=== PATIENT | male | born 1960 | race Caucasian/White ===

== ENCOUNTER → 2018-09-01 | Day surgery (SDC) | payer BC ==
[~2018-09-01] MED LIST: Lactated Ringers 1,000 ML IV SCH; Propofol 200 MG/20 ML SDV IV ONE
--- NOTE | 2018-09-01 12:39 | OR ---
DATE OF OPERATION: 09/01/2018 PREOPERATIVE DIAGNOSIS: 1. POSTPRANDIAL ABDOMINAL PAIN. 2. CHRONIC ALTERED BOWEL HABITS. POSTOPERATIVE DIAGNOSIS: 1. DUODENITIS WITH ULCERATION. 2. SIGMOID DIVERTICULOSIS. SURGEON: Mike Tse MD PROCEDURE: 1. EGD WITH BIOPSIES X2, RACHEL. 2. FULL-LENGTH COLONOSCOPY WITH RANDOM BIOPSIES X5. ANESTHESIA: MAC via GLOVE EXAMINER. COMPLICATIONS: None. SPECIMEN: 1. Duodenal biopsy x2. 2. RACHEL. 3. Random colon biopsies x5. FINDINGS: 1. Full-length EGD. 2. Duodenitis in duodenal bulb with focal ulceration. 3. Full-length colonoscopy. 4. Minimal sigmoid diverticulosis. 5. No colon pathology, polyps, or explanation for patient's altered bowel habits. RECOMMENDATIONS: We will treat patient with proton pump therapy for his duodenitis and await pathology reports for further options. INDICATIONS: The patient was in for a routine physical. Admits to some postprandial abdominal fullness and bloating. Gallbladder ultrasound was negative. We elected to proceed with EGD in that regard. It has been 10 years since his last colonoscopy and he does have a history of persistent diarrhea. We elected to have diagnostic colonoscopy as well. DESCRIPTION OF PROCEDURE: The patient was prepped and draped, placed in left lateral decubitus position. A lubricated Olympus gastroscope was inserted over a bit, advanced to the cricopharyngeus area, and easily intubated into the esophagus. The esophageal lining was benign in its entire course. The Z-line was crisp around 40 cm. There may be a very small hiatal hernia present, but no spontaneous reflux. No distal esophagitis, stricturing, ulceration, or Mckenzie's changes. The scope was advanced into the stomach through the pylorus and into the second portion of duodenum. The second portion of the duodenum was unremarkable. The patient did have fairly obvious duodenitis of the duodenal bulb with a couple of small focal erosions, no ruchi ulcerations. Two biopsies were taken. The scope was brought back into the stomach and retroflexed. The upper fundus and cardia were unremarkable. Upon straightening, the rest of the fundus and antrum showed no signs of gastritis. There were no polyps, masses, or other worrisome lesions. A CLOtest was obtained, air was suctioned from the stomach, and the scope removed without complication. A lubricated Olympus colonoscope was then inserted and easily advanced to the cecum. I was able to directly visualize the ileocecal valve and appendiceal orifice. The bowel prep was excellent. Throughout the length of the colon, I could find no signs of any polyps, mass, ulceration, or bleeding sites. No vascular abnormalities or signs of colitis. No significant inflammatory changes. The patient does have a few scattered diverticula in the sigmoid area, minimal in severity. I did do random biopsies x5 throughout the colon given patient's persistent altered bowel habits. The rectal vault was unremarkable. Retroflexion of the scope in the rectum showed no anal lesions. Air was suctioned, scope removed without complication. MAG/ZOFIA /[id number]
== END ==
LOC: CC.SDS 08:43
PROVIDERS: ATTEND Family Medicine
DX: K29.80 Duodenitis without bleeding (principal); K26.9 Duodenal ulcer, unspecified as acute or chronic, without hemorrhage or perforation; K57.30 Diverticulosis of large intestine without perforation or abscess without bleeding; R19.4 Change in bowel habit; I10 Essential (primary) hypertension; N40.0 Benign prostatic hyperplasia without lower urinary tract symptoms; E78.00 Pure hypercholesterolemia, unspecified; M19.90 Unspecified osteoarthritis, unspecified site; Z87.891 Personal history of nicotine dependence; Z79.82 Long term (current) use of aspirin; Z79.899 Other long term (current) drug therapy
CPT/HCPCS: 43239; 45380; 87081; J2704; J7120